=== PATIENT | female | born 1995 ===

== ENCOUNTER → 2020-12-01 | Outpatient (CLI) | payer OTHER | END | disposition home or self-care (01) | LOC: PRENATAL 13:28 | PROVIDERS: ATTEND Obstetrics & Gynecology Maternal & Fetal Medicine | DX: O26.843 Uterine size-date discrepancy, third trimester (principal); O99.013 Anemia complicating pregnancy, third trimester; O26.853 Spotting complicating pregnancy, third trimester; O26.873 Cervical shortening, third trimester; O98.913 Unspecified maternal infectious and parasitic disease complicating pregnancy, third trimester; Z36.89 Encounter for other specified antenatal screening; Z3A.32 32 weeks gestation of pregnancy ==